=== PATIENT | female | born 1940 | race Caucasian/White ===

== ENCOUNTER 2019-05-08 09:02 | Emergency (ER) | payer MEDICARE, MEDICAID ==
[~2019-05-08] VITALS: Ht 152.4 cm; Wt 45.0 kg
[2019-05-08] MEDS ORDERED: ACETAMINOPHEN 325MG TABLET PO ONE (10:00)
[2019-05-08] MEDS ORDERED: LIDOCAINE HCL/EPINEPHRINE 1%-EPI 1:100,000 30 ML VIAL INFIL ONE (13:15)
[2019-05-08] MEDS ORDERED: OLANZAPINE 10 MG/VIAL IM ONE (13:15)
[2019-05-08] MEDS ORDERED: LIDOCAINE HCL/EPINEPHRINE 1%-EPI 1:100,000 20 ML VIAL INFIL ONE (14:15)
[2019-05-08 16:30] VITALS: BP 151/78
== END 2019-05-08 16:43 | disposition home or self-care (01) ==
LOC: ER 09:29
DX: S01.81XA Laceration without foreign body of other part of head, initial encounter (principal); S52.501A Unspecified fracture of the lower end of right radius, initial encounter for closed fracture; F32.9 Major depressive disorder, single episode, unspecified; K21.9 Gastro-esophageal reflux disease without esophagitis; F03.90 Unspecified dementia, unspecified severity, without behavioral disturbance, psychotic disturbance, mood disturbance, and anxiety; W52.XXXA Crushed, pushed or stepped on by crowd or human stampede, initial encounter; Y93.9 Activity, unspecified; Y92.129 Unspecified place in nursing home as the place of occurrence of the external cause
CPT/HCPCS: 12001; 12011; 70450; 73080; 73090; 73100; 73120; 96372; 99284; J3490

== ENCOUNTER 2021-05-14 13:02 | Emergency (ER) | payer MEDICARE, MEDICAID ==
[~2021-05-14] VITALS: Ht 162.6 cm; Wt 65.0 kg
[2021-05-14] MEDS ORDERED: RISP05 PO (13:18)
[2021-05-14] MEDS ORDERED: SERT25TA PO (13:18)
[2021-05-14] MEDS ORDERED: POLY17PO3 PO (13:18)
[2021-05-14] MEDS ORDERED: acetaminophen (13:18)
[2021-05-14] MEDS ORDERED: FAMO20TA8 PO (13:18)
[2021-05-14] MEDS ORDERED: DOCU-138 PO (13:18)
[2021-05-14] MEDS ORDERED: IBUP-2029 PO (13:18)
[2021-05-14] MEDS ORDERED: [UNRECOGNIZED DRUG - OTHER] (13:18)
[2021-05-14] MEDS ORDERED: TUBE5VIA ID (13:18)
[2021-05-14] MEDS ORDERED: TETANUS, DIPHTHERIA, PERTUSSIS VAC/PF 0.5ML (>10YR OLD) IM ONE (14:45)
[2021-05-14] MEDS ORDERED: ACETAMINOPHEN 325MG TABLET PO ONE (14:45)
[2021-05-14 19:52] VITALS: BP 127/67
== END 2021-05-14 19:55 | disposition home or self-care (01) ==
LOC: ER 13:02
DX: S00.212A Abrasion of left eyelid and periocular area, initial encounter (principal); F03.90 Unspecified dementia, unspecified severity, without behavioral disturbance, psychotic disturbance, mood disturbance, and anxiety; J84.112 Idiopathic pulmonary fibrosis; M47.9 Spondylosis, unspecified; F20.9 Schizophrenia, unspecified; K21.9 Gastro-esophageal reflux disease without esophagitis; Z90.49 Acquired absence of other specified parts of digestive tract; X99.1XXA Assault by knife, initial encounter; Y93.89 Activity, other specified; Y92.89 Other specified places as the place of occurrence of the external cause
CPT/HCPCS: 90471; 90715; 99283

== ENCOUNTER 2023-12-21 11:46 | Emergency (ER) | payer MEDICARE, MEDICAID ==
[~2023-12-21] VITALS: Ht 147.3 cm; Wt 45.0 kg
[~2023-12-21 11:46] MED LIST: DOCU-138 PO; FAMO20TA8 PO; IBUP-2029 PO; POLY17PO3 PO; RISP05 PO; SERT25TA PO; TUBE5VIA ID; [UNRECOGNIZED DRUG - OTHER]; acetaminophen
[2023-12-21 11:53] VITALS: O2SAT 99
[2023-12-21 16:00] VITALS: BP 124/70; PULSE 71; RESP 14; TEMP 98
== END 2023-12-21 16:00 | disposition home or self-care (01) ==
LOC: ER 12:24
DX: R68.89 Other general symptoms and signs (principal); F03.90 Unspecified dementia, unspecified severity, without behavioral disturbance, psychotic disturbance, mood disturbance, and anxiety; K21.9 Gastro-esophageal reflux disease without esophagitis; F20.9 Schizophrenia, unspecified; Z79.899 Other long term (current) drug therapy; W18.39XA Other fall on same level, initial encounter; Y93.89 Activity, other specified; Y92.89 Other specified places as the place of occurrence of the external cause; Y99.8 Other external cause status
CPT/HCPCS: 99283